=== PATIENT | male | born 1985 | race Caucasian/White ===

== ENCOUNTER 2020-12-10 18:59 | Emergency (ER) | payer OTHER ==
[~2020-12-10] VITALS: Ht 180.3 cm; Wt 68.0 kg
[2020-12-10] MEDS ORDERED: ALBU6.7H9 IH (19:24)
--- NOTE | 2020-12-10 19:26 | NUR ---
Dr North at the bedside for MSE.
[2020-12-10] MEDS ORDERED: AZIT250T PO (21:17)
[2020-12-10] MEDS ORDERED: PRED20TA PO (21:17)
[2020-12-10] MEDS ORDERED: BENZ-13 PO (21:17)
[2020-12-10 21:23] VITALS: BP 116/85
--- NOTE | 2020-12-10 21:23 | NUR ---
Patient discharged to home in stable condition. Written and verbal after care instructions given. Patient verbalizes understanding of instructions. Stressed follow up or return to ER for worsening s/s.
== END 2020-12-10 21:23 | disposition home or self-care (01) ==
LOC: ER 19:06
DX: J20.9 Acute bronchitis, unspecified (principal); Z20.822 Contact with and (suspected) exposure to COVID-19; J45.909 Unspecified asthma, uncomplicated; R94.31 Abnormal electrocardiogram [ECG] [EKG]
CPT/HCPCS: 71045; 93005; A4663